=== PATIENT | female | born 1965 | race Asian ===

== ENCOUNTER 2017-07-11 10:08 | Inpatient (IN) | payer MEDICAID ==
[~2017-07-11 10:08] MED LIST: ROCURONIUM 50 MG INJ
[2017-07-11] MEDS ORDERED: SOD CHLORIDE 0.9% 1,000 ML IV (11:30)
[2017-07-11] MEDS: CEFAZOLIN 2 GM/50 ML (PMX) 50 ML IVPB (11:30)
[2017-07-11 12:04] LABS: ADD MAN DIFF? NO
[2017-07-11 12:17] LABS: WHITE BLOOD COUNT 6.6 10^3/ul (4.8-10.8)
[2017-07-11 12:17] LABS: BASOPHILS % 0.6 % (0.0-2.0); EOSINOPHILS # 0.2 10^3/ul (0.0-0.5); EOSINOPHILS % 2.4 % (0.0-7.0); HEMATOCRIT 42.2 % (37.0-47.0); HEMOGLOBIN 13.4 g/dl (12.0-16.0); LYMPHOCYTES # 1.9 10^3/ul (0.8-2.9); LYMPHOCYTES % 29.3 % (15.0-51.0); MEAN CORPUSCULAR HEMOGLOBIN 25.6 pg (29.0-33.0); MEAN CORPUSCULAR HGB CONC 31.8 g/dl (32.0-37.0); MEAN CORPUSCULAR VOLUME 80.7 fl (82.0-101.0); MEAN PLATELET VOLUME 10.8 fl (7.4-10.4); MONOCYTE # 0.6 10^3/ul (0.3-0.9); MONOCYTES % 9.8 % (0.0-11.0); NEUTROPHIL # 3.8 10^3/ul (1.6-7.5); NEUTROPHILS % 57.6 % (39.0-77.0); PLATELET COUNT 235 10^3/UL (140-415); RED BLOOD COUNT 5.23 10^6/ul (4.20-5.40); RED CELL DISTRIBUTION WIDTH 14.3 % (11.5-14.5)
[2017-07-11 12:29] LABS: ALANINE AMINOTRANSFERASE 87 IU/L (13-69); ALBUMIN 4.5 g/dl (3.3-4.9); ALBUMIN/GLOBULIN RATIO 1.15; ALKALINE PHOSPHATASE 123 IU/L (42-121); ANION GAP 16 (8-16); ASPARTATE AMINO TRANSFERASE 60 IU/L (15-46); BILIRUBIN,INDIRECT 0.2 mg/dl (0-1.1); BILIRUBIN,TOTAL 0.2 mg/dl (0.2-1.3); CARBON DIOXIDE 27 mmol/L (21-31); CHLORIDE 106 mmol/L (97-110); GLUCOSE 109 mg/dl (70-220); TOTAL PROTEIN 8.4 g/dl (6.1-8.1)
[2017-07-11 12:30] LABS: BLOOD UREA NITROGEN 12 mg/dl (7-20); CALCIUM 9.1 mg/dl (8.4-10.2); CREATININE 0.71 mg/dl (0.44-1.00); POTASSIUM 4.6 mmol/L (3.5-5.1); SODIUM 144 mmol/L (135-144)
[2017-07-11] MEDS ORDERED: PROPOFOL 20 ML ×2 (12:42→14:17)
[2017-07-11] MEDS ORDERED: MIDAZOLAM 1 MG/ML 2 ML INJ (12:42)
[2017-07-11] MEDS ORDERED: FENTAnyl 50 MCG/ML VIAL ×2 (12:42→14:28)
[2017-07-11 12:54] LABS: INR 0.89; PROTIME 12.1 Sec (11.9-14.9); PT RATIO 0.9
[2017-07-11 12:55] LABS: PARTIAL THROMBOPLASTIN TIME 29.2 Sec (25.0-35.0)
[2017-07-11] MEDS ORDERED: MEPERIDINE 25 MG INJ IV (13:00)
[2017-07-11] MEDS ORDERED: DIPHENHYDRAMINE 50 MG INJ IV (13:00)
[2017-07-11] MEDS ORDERED: LABETALOL HCL 20MG INJ IV (13:00)
[2017-07-11] MEDS ORDERED: FENTAnyl 50 MCG/ML VIAL IV (13:00)
[2017-07-11] MEDS ORDERED: HYDROmorphONE (0.2 MG/ML) 10ML SYG IV ×3 (13:00)
[2017-07-11] MEDS ORDERED: EPHEDrine SULFATE 50 MG/5 ML SYG IV (13:00)
[2017-07-11] MEDS: STERILE WATER 1L IRRIG BTL IRR (13:07)
[2017-07-11] MEDS: SODIUM CHLORIDE 0.9% 1L IRRIG IRR (13:07)
[2017-07-11] MEDS ORDERED: DEXAMETHASONE 4 MG/ML 1 ML INJ (14:17)
[2017-07-11] MEDS ORDERED: ONDANSETRON 4 MG INJ (14:17)
[2017-07-11] MEDS ORDERED: CEFAZOLIN 1 GM INJ (14:17)
[2017-07-11] MEDS ORDERED: KETOROLAC 30 MG INJ (14:17)
[2017-07-11] MEDS ORDERED: METOCLOPRAMIDE 10 MG INJ (14:17)
[2017-07-11] MEDS ORDERED: ONDANSETRON 4 MG INJ IV (15:00)
[2017-07-11] MEDS ORDERED: morphine 2 MG INJ IV (15:00)
[2017-07-11] MEDS ORDERED: ACETAMINOPHEN 1000MG/100ML IV 100 ML IVPB (15:00)
[2017-07-11] MEDS: FENTAnyl 50 MCG/ML VIAL IV ×3 (15:39→17:06)
[2017-07-11] MEDS: ONDANSETRON 4 MG INJ IV (15:40)
[2017-07-11] MEDS ORDERED: hydrALAzine 20 MG INJ IV (17:30)
[2017-07-11] MEDS: METOCLOPRAMIDE 10 MG INJ IV (18:56)
[2017-07-11] MEDS: D5W-0.45 NACL + KCL 20 MEQ 1,000 ML IV ×2 (20:26→22:54)
[2017-07-11] MEDS: ATORVASTATIN 10 MG TAB PO (20:30)
[2017-07-12] MEDS: D5W-0.45 NACL + KCL 20 MEQ 1,000 ML IV ×2 (03:46→12:58)
[2017-07-12 06:30] LABS: ADD MAN DIFF? NO
[2017-07-12 07:14] LABS: ANION GAP 14 (8-16); BLOOD UREA NITROGEN 12 mg/dl (7-20); CALCIUM 7.5 mg/dl (8.4-10.2); CARBON DIOXIDE 23 mmol/L (21-31); CHLORIDE 106 mmol/L (97-110); CREATININE 0.76 mg/dl (0.44-1.00); GLUCOSE 196 mg/dl (70-220); POTASSIUM 4.6 mmol/L (3.5-5.1); SODIUM 138 mmol/L (135-144)
[2017-07-12 07:20] LABS: BASOPHILS % 0.1 % (0.0-2.0); HEMATOCRIT 31.8 % (37.0-47.0); HEMOGLOBIN 10.2 g/dl (12.0-16.0); LYMPHOCYTES # 1.3 10^3/ul (0.8-2.9); LYMPHOCYTES % 12.7 % (15.0-51.0); MEAN CORPUSCULAR HEMOGLOBIN 26.2 pg (29.0-33.0); MEAN CORPUSCULAR HGB CONC 32.1 g/dl (32.0-37.0); MEAN CORPUSCULAR VOLUME 81.7 fl (82.0-101.0); MEAN PLATELET VOLUME 11.9 fl (7.4-10.4); MONOCYTES % 9.8 % (0.0-11.0); NEUTROPHIL # 7.7 10^3/ul (1.6-7.5); NEUTROPHILS % 76.9 % (39.0-77.0); PLATELET COUNT 202 10^3/UL (140-415); RED BLOOD COUNT 3.89 10^6/ul (4.20-5.40); RED CELL DISTRIBUTION WIDTH 14.6 % (11.5-14.5)
[2017-07-12 07:20] LABS: WHITE BLOOD COUNT 10.1 10^3/ul (4.8-10.8)
[2017-07-12] MEDS: CHOLECALCIFEROL 1,000 UNIT TAB PO (08:25)
[2017-07-12] MEDS: HYDROCHLOROTHIAZIDE 25 MG TAB PO (08:25)
[2017-07-12 15:05] LABS: ALANINE AMINOTRANSFERASE 57 IU/L (13-69); ALBUMIN 3.3 g/dl (3.3-4.9); ALKALINE PHOSPHATASE 86 IU/L (42-121); ANION GAP 10 (8-16); ASPARTATE AMINO TRANSFERASE 25 IU/L (15-46); BLOOD UREA NITROGEN 13 mg/dl (7-20); CALCIUM 8.3 mg/dl (8.4-10.2); CARBON DIOXIDE 27 mmol/L (21-31); CHLORIDE 106 mmol/L (97-110); CREATININE 0.81 mg/dl (0.44-1.00); GLUCOSE 152 mg/dl (70-220); LIPASE 143 U/L (23-300); POTASSIUM 4.3 mmol/L (3.5-5.1); SODIUM 139 mmol/L (135-144); TOTAL PROTEIN 6.6 g/dl (6.1-8.1)
== END 2017-07-12 18:10 | disposition home or self-care (01) | DRG 581 ==
LOC: SDS 10:08 → REC 14:55 → MS2 20:05
PROC: 0HBT0ZZ Excision of Right Breast, Open Approach (ICD-10-PCS; principal; 2017-07-11 13:20)
PROC: 07B50ZX Excision of Right Axillary Lymphatic, Open Approach, Diagnostic (ICD-10-PCS; 2017-07-11 13:20)
DX: C50.911 Malignant neoplasm of unspecified site of right female breast (principal); I10 Essential (primary) hypertension; E78.5 Hyperlipidemia, unspecified
CPT/HCPCS: 71045; 80048; 80053; 83690; 85025; 85610; 85730; 88307; 93005